=== PATIENT | male | born 1955 | race Caucasian/White ===

== ENCOUNTER 2016-12-30 08:42 | Day surgery (SDC) | payer OTHER ==
[~2016-12-30 08:42] MED LIST: ACETAMINOPHEN WITH CODEINE 1 EACH TABLET PO PRN; KETOROLAC TROMETHAMINE 15 MG/ML VIAL IV PRN; MORPHINE SULFATE 2 MG/ML DISP.SYRIN IV PRN; ONDANSETRON HCL/PF 2 MG/ML VIAL IV PRN; OXYBUTYNIN CHLORIDE 5 MG TABLET PO PRN; oxyCODONE HCL/ACETAMINOPHEN 1 TAB TABLET PO PRN
[2016-12-30] MEDS ORDERED: KETOROLAC TROMETHAMINE 30 MG/ML VIAL IV ONE (09:18)
[2016-12-30] MEDS ORDERED: NORMAL SALINE 1,000 ML IV ONE ×2 (09:18→13:05)
[2016-12-30] MEDS ORDERED: HYDROmorphone HCL 1 MG/ML DISP.SYRIN IV ONE (09:19)
--- NOTE | 2016-12-30 09:24 | ERNOTE ---
Back Pain ER HPI Date of Service: 12/30/16 Presenting Symptoms: other - left flank pain Time Seen by Provider: 12/30/16 09:12 Source: patient Exam Limitations: no limitations Immunizations: IMMUNIZATION HX Immunizations Up to Date Yes History of Influenza Vaccine No Hx Pneumococcal Vaccination No Allergies/Adverse Reactions: Allergies No Known Allergies Allergy (Verified 12/30/16 08:53) Home Medications: HOME MEDICATIONS Simvastatin [Zocor] 40 mg PO HS 12/30/16 [Last Taken Unknown] Narrative: patient presents to the ED with 3 days or left flank pain. He relates this came on abruptly. He relates he has had a kidney stone before and this feels exactly like his other kidney stone. He feels nauseated. No vomiting. Pain is waxing and waning. It can be severe but now is moderate. Not worse with movement. Has not seen anyone else for this. Nothing makes it better or worse. Timing: Reports: constant, other - fluctuating intensity Quality/Severity: Reports: severe Location of pain: Reports: other - left flank Activities at Onset: Reports: none Recent Injury?: Reports: no Modifying Factors - (Improves): Reports: other - nothing Modifying Factors - (Worsens): Reports: other - nothing Associated Symptoms: Reports: none - no testicular pain. Denies: fever/chills Prior Treament: Denies: recently seen Review of Systems - Review of Systems Constitutional: Absent: fever Respiratory: Absent: shortness of breath Cardiology: Absent: chest pain Gastrointestinal/Abdominal: Present: See HPI Genitourinary: Present: See HPI. Absent: dysuria Musculoskeletal: Present: back pain Skin: Absent: rash All Other Systems: All systems neg except as marked - Patient's Past Medical History Patient History - Medical: No pertinent hx, Kidney stone Patient History - Cardiac/Respiratory: No pertinent hx Patient History - Cancer: No Hx of Cancer Patient History - Surgical Procedures: No surgical history Patient History - Other: None - Social History Living Situations: home Abuse History: No History of abuse Psych History: No pertinent hx Smoking Status: Never smoker Alcohol Use: none Drug Use: none - Immunizations Immunizations Up to Date: Yes Hx Pneumococcal Vaccination: No History of Influenza Vaccine: No Physical Exam - Physical Exam General Appearance: Present: alert, no apparent distress Eye Exam: Normal inspection: bilateral, PERRL: bilateral Ears, Nose, Throat: Present: normal ENT inspection Neck: Present: normal inspection Respiratory: Present: no respiratory distress, normal breath sounds, no accessory muscle use, lungs clear Cardiovascular/Chest: Present: regular rate, rhythm, normal peripheral pulses Gastrointestinal/Abdominal: Present: normal bowel sounds, nontender, nondistended, soft. Absent: tenderness Back Exam: Present: CVA tenderness (L) Extremity Exam: Present: normal inspection Neurological Exam: Present: alert, normal mood/affect, no motor/sensory deficits Skin Exam: Absent: skin rash ED Progress - Results and Orders Patient's Lab Results:: I have reviewed the patient's lab results. - Vital Signs Patient's Vital Signs:: I have reviewed the patient's vital signs. Vital Signs: Vital Signs 12/30/16 08:48 Temperature 36.9 C Pulse Rate 90 Respiratory 18 Rate Blood Pressure 152/94 O2 Sat by Pulse 96 Oximetry - CT/Ultrasound CT/Ultrasound Narrative: I reviewed CT and discussed the CT with Dr Hill radiology - Progress/Reassessment Chief Complaint: Back Pain Progress Note-Subjective: 12/30/16 11:22 Patient feeling significantly improved. Pain nearly resolved. Large distal stone left. I spoke with Dr Cordova [facility] who is here and will take the patient for ureteral stent today. Departure Clinical Impression: Kidney stone - Departure Disposition: [facility] Condition: Stable
[2016-12-30 09:27] LABS: Hematocrit 42.1 % (42.0-52.0); Hemoglobin 14.1 gm/dL (13.5-18.0); Mean Cell Volume 87.7 fl (78-100); Mean Corpuscular Hemoglobin 29.4 pg (27-31); Mean Corpuscular Hgb Conc 33.5 g/dl (32-36); Mean Platelet Volume 10.3 fl (6.0-9.5); Neutrophil # 7.3 K/mm3 (1.3-6.0); Platelet Count 188 K/mm3 (150-450); Red Cell Distribution Width 12.5 % (11.5-14.0); White Blood Count 9.6 K/mm3 (4.0-10.5)
[2016-12-30 09:36] LABS: Anion Gap 16.5 mmol/L (6.8-13.8); BUN/Creatinine Ratio 20.6 (9.0-21.6); Calcium * 9.6 mg/dL (7.9-10.9); Carbon Dioxide 24.3 mmol/L (24-32.6); Estimated Creat Clear 73.9; Potassium 3.8 mmol/L (3.4-4.6)
--- OUTSIDE RECORDS SUMMARY | 2016-12-30 09:56 | XMS REPORT | Continuity of Care Document ---
:1955 Author Organization [facility] ([facility]) Address [address] [place] [address] Phone [phone] Care Team Providers Name Role Phone Latanya Saenz Ivan Primary Care Provider [phone] Source Comments This disclosure is being made pursuant to the Care Everywhere program, applicable federal and state laws, and may not contain all informaitonavailable regarding this patient.[facility] ([facility]) Active Allergies and Adverse Reactions Not on File Current Medications Prescription Sig. Disp. Refills Start Date End Date Status naproxen 250 mg Take 500 mg by mouth Active tablet daily. HYDROcodone-acetamino Take 1 Tab by mouth 20 Tab 0 06/21/2011 Active phen 5-500 mg per every 4 hours as tablet needed for Pain. No more than 6 tabs/24 hours. DO NOT EXCEED 3,000 MG ACETAMINOPHEN PER DAY FROM ALL SOURCES Indications: Pain ibuprofen 800 mg Take 1 Tab by mouth 20 Tab 2 06/21/2011 Active tablet every 6 hours as needed for Pain. No more than 4 tabs/24 hours. DO NOT EXCEED 3,200 MG IBUPROFEN PER DAY FROM ALL SOURCES Indications: Pain Active Problems Problem Noted Date Arthritis 06/21/2011 Immunizations Name Dates Previously Given Next Due Tdap 06/09/2011 Social History Tobacco Use Types Packs/Day Years Used Date Never Smoker Smokeless Tobacco: Never Used Alcohol Use Drinks/Week oz/Week Comments No Last Filed Vital Signs Vital Sign Reading Time Taken Blood Pressure 148/76 06/21/2011 1:39 PM CDT Pulse 80 06/21/2011 1:39 PM CDT Temperature 36.3 C (97.3 F) 06/09/2011 12:14 PM CDT Respiratory Rate - - Height 1.772 m (5' 9.75") 06/09/2011 12:14 PM CDT Weight 76.839 kg (169 lb 6.4 oz) 06/09/2011 12:14 PM CDT Body Mass Index 24.47 06/09/2011 12:14 PM CDT Oxygen Saturation 99% 06/21/2011 12:50 PM CDT Plan of Care Health Maintenance Due Date Last Done Comments HCV Screening 1955 Hepatitis B Vaccine (1 of 3 - Primary Series) 1955 Colonoscopy 2004 Prostate Cancer Screening 06/09/2012 06/09/2011 Zoster Vaccine 2014 Influenza Vaccine: Seasonal (#1) 04/04/2016 Lipid Disorder Screening 06/09/2016 06/09/2011 Td Vaccine 06/09/2021 06/09/2011 Tdap Vaccine Completed 06/09/2011 Results from Last 3 Months Not on file
[2016-12-30 10:09] LABS: Urine Bilirubin Negative (NEGATIVE); Urine Ketone 15 mg/dL (NEGATIVE); Urine Nitrite Negative (NEGATIVE); Urine Protein Negative (NEGATIVE); Urine Urobilinogen Normal (NORMAL)
[2016-12-30 10:13] LABS: Urine Appearance Clear; Urine Bacteria None Seen; Urine Blood 10 /ul (NEGATIVE); Urine Color Dark Yellow; Urine RBC 0-5 /hpf (0-5); Urine WBC None Seen /hpf (0-5)
[2016-12-30] MEDS ORDERED: KETOROLAC TROMETHAMINE 30 MG/ML VIAL ONE (10:14)
[2016-12-30] MEDS ORDERED: HYDROmorphone HCL 1 MG/ML DISP.SYRIN ONE (10:14)
--- OUTSIDE RECORDS SUMMARY | 2016-12-30 11:10 | XMS REPORT | Continuity of Care Document ---
:1955 Author Organization [facility] ([facility]) Address [address] [place] [address] Phone [phone] Care Team Providers Name Role Phone Latanya Saenz Ivan Primary Care Provider [phone] Source Comments This disclosure is being made pursuant to the Care Everywhere program, applicable federal and state laws, and may not contain all informaitonavailable regarding this patient.[facility] ([facility]) Active Allergies and Adverse Reactions Not on [...]
[2016-12-30] MEDS ORDERED: NORMAL SALINE 1,000 ML IV PRN (11:22)
--- OUTSIDE RECORDS SUMMARY | 2016-12-30 11:47 | XMS REPORT | Continuity of Care Document ---
:1955 Author Organization [facility] ([facility]) Address [address] [place] [address] Phone [phone] Care Team Providers Name Role Phone Latanya Saenz Ivan Primary Care Provider [phone] Source Comments This disclosure is being made pursuant to the Care Everywhere program, applicable federal and state laws, and may not contain all informaitonavailable regarding this patient.[facility] ([facility]) Active Allergies and Adverse Reactions Not on [...]
[2016-12-30] MEDS ORDERED: RINGERS SOLUTION,LACTATED 1,000 ML IV ONE (13:30)
[2016-12-30 15:29] VITALS: BP 146/84
[2017-01-04 21:49] LABS: Stone Composition 2 DNR
== END 2016-12-30 11:07 | disposition home or self-care (01) ==
LOC: ER 08:42 → AMB 11:06 → ER 11:06
PROVIDERS: ATTEND Urology
PROC: 0T778DZ Dilation of Left Ureter with Intraluminal Device, Via Natural or Artificial Opening Endoscopic (ICD-10-PCS; 2016-12-30)
PROC: 0WHR8YZ Insertion of Other Device into Genitourinary Tract, Via Natural or Artificial Opening Endoscopic (ICD-10-PCS; 2016-12-30)
PROC: 0TF78ZZ Fragmentation in Left Ureter, Via Natural or Artificial Opening Endoscopic (ICD-10-PCS; principal; 2016-12-30 12:50)
DX: N20.1 Calculus of ureter (principal); E78.5 Hyperlipidemia, unspecified; Z68.25 Body mass index [BMI] 25.0-25.9, adult